=== PATIENT | male | born 1975 | race Caucasian/White ===

== ENCOUNTER → 2020-10-27 | Day surgery (SDC) | payer OTHER ==
[~2020-10-27] MED LIST: ACTOS15 MG PO; ANTIVERT25 MG PO; GABAPENTIN600 MG PO; JANUVIA50 MG PO; LEXAPRO 10MG TA10 MG PO; LIPITOR40 MG PO; PERCOCET 5-3251 EACH PO; PLAVIX75 MG PO; PRILOSEC20 MG PO; PRINIVIL20 MG PO; TOUJEO MAX300 UNIT/1 IJ
[2020-10-27 07:13] LABS: ALBUMIN 3.4 g/dL (3.4-5.0); BILIRUBIN - TOTAL 0.5 mg/dL (0.2-1.0); BUN/CREAT RATIO (CALC) 15.6 RATIO; CREATININE 0.77 mg/dL (0.67-1.17); GLOBULIN (CALCULATION) 3.6 g/dL; POTASSIUM 4.2 mmol/L (3.5-5.1)
[2020-10-27 07:25] LABS: HCT 41.2 % (42.0-52.0); HGB 13.5 g/dl (13.2-18.0); MCH 28.7 pg (25.0-31.0); MCHC 32.8 g/dL (32.0-36.0); MCV 87.7 fL (78.0-100.0); MPV 10.2 fL (6.0-9.5); RBC 4.7 M/uL (4.70-6.00); RDW 13.5 % (11.5-14.0); WBC 9.6 K/uL (4.0-10.5)
== END | disposition home or self-care (01) ==
LOC: FAS 06:23
PROVIDERS: Orthopaedic Surgery
DX: S82.851A Displaced trimalleolar fracture of right lower leg, initial encounter for closed fracture (principal); R12 Heartburn; E11.9 Type 2 diabetes mellitus without complications; I10 Essential (primary) hypertension; G47.30 Sleep apnea, unspecified; Z99.89 Dependence on other enabling machines and devices; Z20.822 Contact with and (suspected) exposure to COVID-19; X58.XXXA Exposure to other specified factors, initial encounter
CPT/HCPCS: 36415; 71045; 73600; 76000; 80053; 82962; 93005; C1713; C1769; J0690; J1100; J2250; J2704; J2795; J3010